=== PATIENT | female | born 1955 | race Caucasian/White ===

== ENCOUNTER 2023-09-25 15:19 | Observation (INO) ==
[2023-09-25 15:50] LABS: ABS Basophils 0.1 10^3/uL (0.0-0.1); ABS Eosinophils 0.3 10^3/uL (0.0-0.5); ABS Lymphocytes 1.1 10^3/uL (1.0-4.8); ABS Monocytes 0.3 10^3/uL (0.0-0.9); ABS Neutrophils 3.1 10^3/uL (1.5-7.6); Hematocrit 41.2 % (35-45); Hemoglobin 13.7 g/dL (11.5-14.3); Mean Corpuscular Hemoglobin 31.6 pg (27-33); Mean Corpuscular Hgb Conc 33.4 g/dL (31-36); Mean Corpuscular Volume 94.5 fL (80-97); Mean Platelet Volume 8.2 fL (7.5-11.2); Platelet Count 249 10^3/uL (150-450); Red Blood Count 4.36 10^6/uL (3.63-4.92); Red Cell Distribution Width 13.5 % (12-17); White Blood Count 4.9 10^3/uL (3.8-11.8)
[2023-09-25 16:35] LABS: Albumin/Globulin Ratio 1.3 (1-3); Calcium 9.2 mg/dL (8.6-10.3); Creatinine, Serum 0.75 mg/dL (0.51-0.95); Potassium 4.1 mmol/L (3.5-5.0); Total Bilirubin 0.5 mg/dL (0.2-1.0); eGFR CKD-EPI 87.2 (>60)
[2023-09-25 17:34] LABS: High Sensitivity Troponin 1 Hr 7 pg/mL (<15)
[2023-09-25] MEDS ORDERED: Polyethylene Glycol 3350 17 GM PACKET PO PRN (21:43)
[2023-09-25] MEDS ORDERED: Senna TAB 8.6 mg TAB PO PRN (21:43)
[2023-09-25] MEDS: Enoxaparin 40 MG/0.4 ML SYR SUBCUT SCH (22:54)
[2023-09-26] MEDS ORDERED: Nystatin TOP POWDER 15 GM BTL TOPICAL SCH (01:00)
[2023-09-26 05:34] VITALS: BP 121/79
[2023-09-26] MEDS ORDERED: Aminophylline 25 MG/ML VIAL ONE (08:14)
[2023-09-26] MEDS ORDERED: Regadenoson 0.4 MG/5 ML SYRINGE ONE (08:15)
[2023-09-26] MEDS: Sulfur Hexaflouride MICROSPHR 25 MG VIAL IV ONE (11:21)
[2023-09-26] MEDS ORDERED: Sulfur Hexaflouride MICROSPHR 25 MG VIAL ONE (11:21)
== END 2023-09-26 12:53 | disposition home or self-care (01) ==
LOC: ED 15:19 → EDHOLD 15:19 → MEDTELE 23:01
PROVIDERS: ADMIT Internal Medicine; ATTEND Internal Medicine